=== PATIENT | male | born 2000 | race Caucasian/White ===

== ENCOUNTER 2020-07-17 22:23 | Emergency (ER) | payer BC, OTHER ==
[~2020-07-17] VITALS: Ht 177.8 cm; Wt 100.0 kg
[2020-07-17] MEDS ORDERED: LIDOCAINE 1% INJ 20 ML 20 ML VIAL INJ ONE (23:15)
[2020-07-17] MEDS ORDERED: cefTRIAXone 1,000 MG/2.86 ml vial (IM ONLY) IM ONE (23:15)
--- NOTE | 2020-07-17 23:47 | ED Abdominal Pain ---
General Chief Complaint: Oral/Throat Problems Stated Complaint: SORE THROAT Nursing Triage Note: SORE THROAT TODAY. Sepsis Screen: No Definite Risk Source of Information: Patient Exam Limitations: No Limitations History of Present Illness Date Seen by Provider: Jul 17, 2020 Time Seen by Provider: 22:27 Initial Comments This 20-year-old young man presents to the emergency room with complaints of severe sore throat starting early this morning. He presented to [facility] and had a COVID-19 swab obtained. He does not know the results yet. He took some amoxicillin he had left over at home this morning but had worsening symptoms despite that. He is afebrile. He has much energy today and tonsillar hypertrophy bilaterally on exam with large lymphadenopathy as well. He denies any other symptoms. Allergies and Home Medications Allergies Coded Allergies: No Known Drug Allergies (Unverified , 07/17/20) Home Medications Amoxicillin 500 Mg Capsule, 1,000 MG PO BID Prescribed by: ADONAY FALCON on 07/17/20 3217 Patient Home Medication List Home Medication List Reviewed: Yes Review of Systems Review of Systems Constitutional: no symptoms reported EENTM: See HPI Respiratory: No Symptoms Reported Cardiovascular: No Symptoms Reported Gastrointestinal: No Symptoms Reported Genitourinary: No Symptoms Reported Musculoskeletal: no symptoms reported Skin: no symptoms reported Psychiatric/Neurological: No Symptoms Reported Endocrine: No Symptoms Reported Hematologic/Lymphatic: No Symptoms Reported Past Kyguxdz-Mhmxii-Pckqol Hx Past Med/Social Hx: Reviewed Nursing Past Med/Soc Hx Patient Social History Alcohol Use: Denies Use Recreational Drug Use: No Smoking Status: Never a Smoker 2nd Hand Smoke Exposure: No Recent Foreign Travel: No Contact w/Someone Who Travel: No Recent Infectious Disease Expo: No Recent Hopitalizations: No Physical Abuse: No Sexual Abuse: No Mistreated: No Fear: No Immunizations Up To Date Tetanus Booster (TDap): Unknown Seasonal Allergies Seasonal Allergies: No Past Medical History Surgeries: Yes (DENTAL) Respiratory: No Cardiac: No Neurological: No Genitourinary: No Gastrointestinal: No Musculoskeletal: No Endocrine: No HEENT: No Cancer: No Psychosocial: No Integumentary: No Blood Disorders: No Physical Exam Vital Signs Vital Signs - First Documented 07/17/20 22:35 Temp 36.7 Pulse 99 Resp 16 B/P (MAP) 143/102 (116) Pulse Ox 98 O2 Delivery Room Air Capillary Refill : Less Than 3 Seconds Height/Weight/BMI Height: '" Weight: lbs. oz. 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 nml as tested, no motor/sensory deficits, alert, normal mood/affect, oriented x 3 Skin: normal color, warm/dry Progress/Results/Core Measures Results/Orders Lab Results Laboratory Tests Test 07/17/20 22:35 07/17/20 23:20 Range/Units Group A Streptococcus Screen NEGATIVE NEGATIVE Monoscreen POSITIVE H NEGATIVE My Orders Orders - ADONAY MAYORGA MD Rapid Strep A Screen (07/17/20 22:27) Ceftriaxone For Im Use (Rocephin For Im (07/17/20 23:15) Lidocaine 1% Inj 20 Ml (Xylocaine 1% Inj (07/17/20 23:15) Monotest (07/17/20 23:10) Medications Given in ED Current Medications Medications Dose Ordered Sig/Carlene Route Start Time Stop Time Status Last Admin Dose Admin Ceftriaxone Sodium 1,000 mg ONCE ONCE IM 07/17/20 23:15 07/17/20 23:16 DC 07/17/20 23:25 1,000 MG Lidocaine HCl 2.1 ml ONCE ONCE INJ 07/17/20 23:15 07/17/20 23:16 DC 07/17/20 23:25 2.1 ML Vital Signs/I&O 07/17/20 07/17/20 22:35 23:57 Temp 36.7 36.6 Pulse 99 89 Resp 16 16 B/P (MAP) 143/102 (116) 138/99 (116) Pulse Ox 98 99 O2 Delivery Room Air Room Air Blood Pressure Mean: 116 Progress Progress Note : Time: 23:45 Progress Note Rapid strep was negative. Backup culture will be obtained. Because exam is very suspicious, an injection of Rocephin is being administered. [place] screen was obtained and patient is positive. 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 See discharge instructions and notes. Departure Impression Primary Impression: Mononucleosis syndrome Additional Impression: Pharyngitis Qualified Codes: J02.9 - Acute pharyngitis, unspecified Disposition: HOME, SELF-CARE Condition: Improved Departure-Patient Inst. Decision time for Depature: 23:48 Referrals: NO,LOCAL PHYSICIAN (PCP/Family) Primary Care Physician Patient Instructions: Mononucleosis (DC) Add. Discharge Instructions: You tested positive for mononucleosis. [place] can last several weeks and can require much rest to resolve. [place] can also exist concurrently with strep throat. Please continue your antibiotics until the final strep culture is known. Pain can be treated with ibuprofen up to 600 mg every 6 hours as needed and/or Tylenol (acetaminophen) up to 1000 mg every 6 hours as needed. Drink plenty of clear liquids and get plenty of rest. You need to quarantine until the results of your COVID-19 testing are known. If you're COVID-19 testing is negative, you may resume interactions with others after symptoms have been improved for 72 hours. If you're COVID-19 test is positive, you'll need to quarantine for 14 days. You may not return to strenuous activity or athletics until you are cleared by a healthcare provider due to risk of spleen injury. All discharge instructions reviewed with patient and/or family. Voiced understanding. Scripts Amoxicillin (Amoxicillin) 500 Mg Capsule 1000 MG PO BID, #28 CAP 0 Refills Prov: ADONAY MAYORGA MD 07/17/20 Work/School Note: School/Childcare Release Date Seen in the Emergency Department: Jul 17, 2020 Return to School: Jul 21, 2020 Restrictions: No PE-Until Released, No Sports-Until Released Other Restrictions Listed Below: If COVID negative, return to school when fever and symptoms gone for 72 hrs Restrictions: If COVID positive, quarantine 14 days. No athletics until cleared by doctor Copy Copies To 1: KAYLIN TOMAS MD, JOSHUA T MD Jul 17, 2020 23:47
[2020-07-17] MEDS ORDERED: AMOX500C2 PO (23:52)
[2020-07-17 23:57] VITALS: BP 138/99
== END 2020-07-17 23:57 | disposition home or self-care (01) ==
LOC: ER 22:25
DX: J02.9 Acute pharyngitis, unspecified (principal); B27.90 Infectious mononucleosis, unspecified without complication; Z88.0 Allergy status to penicillin
CPT/HCPCS: 36415; 86308; 87430; 96372